=== PATIENT | female | born 1995 | race Two or more races ===

== ENCOUNTER 2023-08-18 15:00 | Emergency (ER) | payer BC ==
[~2023-08-18] VITALS: Ht 160 cm; Wt 51.3 kg
== END 2023-08-18 19:14 | disposition home or self-care (01) ==
LOC: ER 15:01
DX: S92.912A Unspecified fracture of left toe(s), initial encounter for closed fracture (principal); X58.XXXA Exposure to other specified factors, initial encounter; Y93.18 Activity, surfing, windsurfing and boogie boarding; Y92.89 Other specified places as the place of occurrence of the external cause; Y99.8 Other external cause status